=== PATIENT | female | born 1980 | race Caucasian/White ===

== ENCOUNTER 2016-12-07 11:58 | Emergency (ER) | payer OTHER ==
[~2016-12-07] VITALS: Ht 157.5 cm; Wt 75.0 kg
[2016-12-07] MEDS ORDERED: ACET-2247 PO (11:59)
[2016-12-07 12:44] LABS: INFLUENZA TYPE B NEGATIVE FOR TYPE B (NEGATIVE)
[2016-12-07 13:27] VITALS: BP 126/85
== END 2016-12-07 15:24 | disposition home or self-care (01) ==
LOC: EMS 11:58
DX: J11.1 Influenza due to unidentified influenza virus with other respiratory manifestations (principal)
CPT/HCPCS: 87804; 99284